=== PATIENT | female | born 1990 | race Two or more races ===

== ENCOUNTER 2018-09-09 15:32 | Emergency (ER) | payer OTHER ==
--- NOTE | 2018-09-09 15:34 | ER Report ---
History and Physical Time Seen By MD: 15:31 HPI/ROS CHIEF COMPLAINT: Left forearm but HISTORY OF PRESENT ILLNESS: Patient is a 28-year-old female here with complaints of a cat bite to the left forearm. Patient was reportedly bathing her cat when it bit her in the forearm. Patient is uncertain about her tetanus status. Patient declined x-ray imaging to evaluate for foreign body. Patient's forearm was soaked in antimicrobial wash and patient was started on Augmentin. Tetanus was updated. REVIEW OF SYSTEMS: Constitutional: No fever, no chills. Musculoskeletal: Mild tenderness to left forearm Skin: Puncture wound present on the mid to distal left arm Neurological: Neurovascular exam intact distal to the bite site Allergies: Coded Allergies: No Known Drug Allergies (Unverified , 09/09/18) Home Meds Active Scripts Amoxicillin/Pot Clav 875-125 Mg Tab (AUGMENTIN 875-125 TABLET) 1 Each Tablet, 1 TAB PO Q12H for 7 Days, #14 TAB Prov:JOE MITCHELL Krish DO 09/09/18 Constitutional Vital Sign - Last 24 Hours 09/09/18 15:37 Temp 98.7 Pulse 81 Resp 20 B/P (MAP) 109/75 Pulse Ox 95 O2 Delivery Room Air Physical Exam General Appearance: The patient is alert, has no immediate need for airway protection and no signs of toxicity. No acute distress Neurological: Neurovascular exam intact in the distal extremity Skin: Small puncture wound present on the mid to distal left forearm without active bleeding Musculoskeletal: Extremities are nontender, nonswollen and have full range of motion. DIFFERENTIAL DIAGNOSIS: After history and physical exam differential diagnosis was considered for Bite, cat scratch, abrasion, retained foreign body, Medical Decision Making EKG/Imaging Imaging Declined x-ray imaging ED Course/Re-evaluation ED Course Patient is a 28-year-old female here with complaints of a left forearm cat bite which occurred shortly prior to arrival. The Is the patient's pet and her im munization status is up-to-date. Patient was unable to recall when her last tetanus immunization was so she was updated today. Patient was started on Augmentin for treatment. Patient declined x-ray imaging of the forearm to evaluate for foreign body. Patient's forearm was soaked in antimicrobial wash. Strict return precautions were provided due to the increased incidence of infection associated with feline bites. 7 day course of Augmentin was prescribed. PCP follow-up recommended. Decision to Disposition Date: Sep 09, 2018 Decision to Disposition Time: 15:51 Depart Departure Latest Vital Signs Vital Signs Date Time Temp Pulse Resp B/P (MAP) Pulse Ox O2 Delivery O2 Flow Rate FiO2 09/09/18 15:37 98.7 81 20 109/75 95 Room Air Impression: Primary Impression: Cat bite involving extremity Condition: Improved Disposition: HOME OR SELF-CARE New Scripts Amoxicillin/Pot Clav 875-125 Mg Tab (AUGMENTIN 875-125 TABLET) 1 Each Tablet 1 TAB PO Q12H for 7 Days, #14 TAB Prov: JOE MITCHELL DO 09/09/18 Patient Instructions: Animal Bite (ED) Additional Instructions: Please take Augmentin 1 tablet twice daily for 7 days for prophylaxis of infection. Feline bites or associated with a higher incidence of infection due to the puncture wounds associated with them. Please monitor closely for signs of infection including rash, fevers, swelling, worsening pain. Please follow-up with your primary care provider in the next 3-5 days for reevaluation. JOE MITCHELL DO Sep 09, 2018 15:34
[2018-09-09 15:37] VITALS: BP 109/75
[2018-09-09] MEDS ORDERED: AMOX/CLAV 875 MG TAB PO ONE (15:40)
[2018-09-09] MEDS ORDERED: DIPHTH/TETANUS/ACEL. PERTUSSIS IM ONLY ONE (15:40)
[2018-09-09] MEDS ORDERED: AMOX-559 PO (15:55)
== END 2018-09-09 16:13 | disposition home or self-care (01) ==
LOC: ER 15:41
DX: S51.852A Open bite of left forearm, initial encounter (principal); W55.01XA Bitten by cat, initial encounter
CPT/HCPCS: 90471; 90715; 99283